=== PATIENT | male | born 1960 | race Caucasian/White ===

== ENCOUNTER → 2019-01-30 | Outpatient (CLI) | payer BC, OTHER ==
[2019-01-30 15:08] LABS: HEMATOCRIT 39.8 % (42.0-52.0); HEMOGLOBIN 13.7 gm/dL (14.0-18.0); MCH 33.4 pg (26.0-34.0); MCHC 34.3 g/dL (28.0-37.0); MCV 97.3 fL (80.0-100.0); RBC 4.09 mil/uL (4.50-6.00); WBC 4.5 thou/uL (4.0-11.0)
[2019-01-30 15:23] LABS: ALBUMIN 4.3 g/dL (3.4-5.0); CALCIUM 9.3 mg/dL (8.5-10.1); CREATININE 1.5 mg/dL (0.7-1.3); POTASSIUM 4.6 mmol/L (3.5-5.1); TOTAL BILIRUBIN 0.3 mg/dL (<0.1-1.0); TOTAL PROTEIN 6.9 g/dL (6.4-8.2)
== END ==
LOC: CAT 11:51
PROVIDERS: Internal Medicine Cardiovascular Disease
DX: I48.91 Unspecified atrial fibrillation (principal); I25.10 Atherosclerotic heart disease of native coronary artery without angina pectoris; J43.9 Emphysema, unspecified; M47.814 Spondylosis without myelopathy or radiculopathy, thoracic region; Z90.49 Acquired absence of other specified parts of digestive tract

== ENCOUNTER 2019-02-16 06:50 | Observation (INO) | payer BC, OTHER ==
[2019-02-16] VITALS (16 sets, daily range): BP systolic 101–133; BP diastolic 49–80
[~2019-02-16] VITALS: Ht 185.4 cm; Wt 134.2 kg
--- NOTE | ~2019-02-16 | D ---
[facility] [address] [place] [address] DISCHARGE SUMMARY Name: CIELO LIANG Room #: [facility] Bartolome Gruber#: [id number] Admission: 02/16/19 ������������������ Attend Phys: Russ Burton MD Discharge: 02/17/19 ������������������ Date of : 56 Report #: [id number] THIS REPORT FOR: //name// CC: FAM unknown Russ Burton TRISH RAMIREZ DATE OF SERVICE: 02/17/2019 DISCHARGE DIAGNOSES: 1. Paroxysmal atrial fibrillation. 2. Cardiomyopathy. 3. Hypertension. 4. Diabetes. PROCEDURES PERFORMED: AFib ablation. HISTORY: The patient is a 58-year-old male with a history of recurrent paroxysmal atrial fibrillation despite antiarrhythmic drug therapy, was here for an ablation. He underwent successful isolation of the 4 pulmonary veins. He had no procedure-related complications. HOSPITAL COURSE: The patient was monitored in the CCU overnight and did well with no issues. On the day of discharge, he denied any chest pain, shortness of breath, PND or orthopnea. PHYSICAL EXAMINATION: HEART: Regular rate and rhythm. LUNGS: Clear to auscultation bilaterally. ABDOMEN: Soft, nontender. EXTREMITIES: No clubbing, cyanosis, or edema. His right groin was healing nicely with no signs of hematoma. On telemetry, he remained in sinus rhythm throughout the night. As such, he was deemed stable for discharge home. He will continue with his same cardiac medications including his amiodarone and anticoagulation regimen. He will see my nurse practitioner in 2 weeks and see me back in 3 months. Discharge instructions were reviewed. ��������������������������������������������� ���������������������������������������� By: ��������������������������������������������� 0810 1046 Russ Burton MD /nt
--- NOTE | ~2019-02-16 | P ---
[facility] [address] [place] [address] PROCEDURE REPORT Name: CIELO LIANG Room #: 212-[facility] M..#: [id number] Admission: 02/16/19 ������������������ Attend Phys: Russ Burton MD Discharge: ������������������ Date of : 56 Report #: [id number] THIS REPORT FOR: //name// CC: FAM unknown Russ CUMMINGSDENICE MENGMAREK DATE OF SERVICE: 02/16/2019 PREOPERATIVE DIAGNOSIS: Paroxysmal atrial fibrillation. POSTOPERATIVE DIAGNOSIS: Paroxysmal atrial fibrillation. PROCEDURES PERFORMED: 1. Atrial fibrillation, CPT code 86768. 2. 3D mapping, CPT code 65262. 3. Intracardiac echocardiogram, CPT code 69626. ANESTHESIA: The patient underwent general anesthesia with no anesthesia related complications. DESCRIPTION OF PROCEDURE: The patient underwent informed consent. We discussed the details of the procedure including the risks, which include, but not limited to, bleeding, infection, vascular damage, cardiac perforation as well as stroke and [place]. He understood these risks and is willing to proceed. The patient was brought to the EP laboratory in a fasting and unsedated state, prepped and draped in a sterile fashion. Next, I injected lidocaine to the right groin region, obtained access to the right femoral vein x 3 placing an 8, 9 and 7-Icelandic short sheath using the modified Seldinger technique. Next, under fluoroscopy, I placed a decapolar catheter easily into the coronary sinus and ice catheter into the right atrium. Next, the patient was systemically heparinized and a transseptal was performed using an SL1 sheath and a Des Arc needle. Of note, the patient did have a significant interatrial septal hypertrophy with the finished area noted to be both anterior and along the superior aspect of the interatrial septum. Using the SL1 sheath and Des Arc needle, I was able to cross into the left atrium and placed a Lasso catheter and created a detailed 3D voltage map of the left atrium. At baseline, the patient was in sinus rhythm with sinus cycle length of 1060 milliseconds, [place] interval 240 milliseconds, QRS duration 90 milliseconds and QT interval 460 milliseconds. Of note, the patient did have an unusual anatomy of the left superior pulmonary vein. Isolation of this vein was quite challenging, likely due to 2 reasons, #1 being high transseptal and #2 being the unusual course of this left superior pulmonary vein that took a very anterior course around the left atrial appendage. Next, I exchanged my SL1 sheath for the cryosheath and cryoballoon and I performed approximately 5 freezes in the left superior pulmonary vein with [address] [id number] PROCEDURE REPORT Name: CIELO LIANG Room #: 212-[facility] M.R.#: [id number] Admission: 02/16/19 ������������������ Attend Phys: Russ Burton MD Discharge: ������������������ Date of : 56 Report #: [id number] no evidence of isolation. In fact, I had difficulty obtaining any significant occlusions and attempts were around -30 to -35 degrees. I therefore turned my attention to the left inferior pulmonary vein and performed a total of 4 freezes in this vein and again, this vein appeared to partially isolate, but it still appeared to be connected. I therefore re-interrogated the left superior pulmonary vein and this vein was still connected; therefore, I decided to turn attention to the right-sided veins, which were more straightforward. I used my decapolar catheter for phrenic nerve pacing. The right superior pulmonary vein underwent a 3 minute freeze followed by 240 second freeze, which resulted in isolation. The second freeze resulted in isolation in about 20 seconds. The right inferior pulmonary vein isolated with a single freeze within 60 seconds. The inferior vein underwent a single 4 minute freeze. I therefore removed the cryoballoon from the left atrium and created a voltage map, which showed that the right-sided veins were isolated, but there was still a lot of activity in the left superior pulmonary vein and some mild activity noted in the left inferior pulmonary vein; therefore, I performed a second transseptal using the SL1 sheath and placed a SmartTouch ThermoCool catheter into the left superior pulmonary vein. Again, even with radiofrequency ablation, this unusual tortuosity of this vessel made isolation of the vein challenging. Initially, the vein appeared to be connected along the roof of the vein and then the activation pattern changed. It then appeared that there was connection along the posterior ashly of this vein. Eventually, we were able to isolate this vessel. I then moved my Lasso into the right inferior pulmonary vein and there was one small electrogram that did capture with pacing and I ablated around this site until there was isolation. Again, these signals were basically along the carinal aspect of the left inferior pulmonary vein. This vein demonstrated entrance and exit block post ablation as well. As such, the procedure was concluded. Catheters and sheaths were pulled. Hemostasis was obtained after the patient received systemic protamine. There were no procedure related complications. CONCLUSIONS: Successful atrial fibrillation ablation with isolation of the 4 pulmonary veins requiring both radiofrequency and cryoablation. ��������������������������������������������� ���������������������������������������� By: ��������������������������������������������� 1704 0726 Russ Burton MD /nt
[2019-02-16 07:20] LABS: ABSOLUTE NEUTROPHILS 2.4 thou/uL (1.4-8.2); BASOPHILS 1.1 % (0.0-2.0); EOSINOPHILS 3.4 % (0.0-3.0); HEMATOCRIT 40.7 % (42.0-52.0); HEMOGLOBIN 13.9 gm/dL (14.0-18.0); LYMPHOCYTES 24.9 % (24.0-44.0); MCH 33.2 pg (26.0-34.0); MCHC 34.1 g/dL (28.0-37.0); MCV 97.5 fL (80.0-100.0); MONOCYTES 11.8 % (1.0-8.0); PLATELET COUNT 200 thou/uL (150-400); POLYS 58.8 % (36.0-66.0); RBC 4.17 mil/uL (4.50-6.00); RDW 12.7 % (10.5-14.5); WBC 4.1 thou/uL (4.0-11.0)
[2019-02-16] MEDS ORDERED: ALBUTEROL2.5 MG/31 INH (07:29)
[2019-02-16] MEDS ORDERED: XANAX 0.5 MG0.5 MG PO (07:29)
[2019-02-16] MEDS ORDERED: WELLBUTRIN XL150 MG PO (07:30)
[2019-02-16] MEDS ORDERED: PACERONE 200 M200 M1 PO (07:30)
[2019-02-16] MEDS ORDERED: CARDIZEM CD240 MG PO (07:32)
[2019-02-16] MEDS ORDERED: NEXIUM40 MG PO (07:32)
[2019-02-16] MEDS ORDERED: LASIX 20 MG TAB20 MG PO (07:33)
[2019-02-16 07:34] LABS: ALBUMIN 4.2 g/dL (3.4-5.0); APTT 30.3 Seconds (24.5-32.8); CALCIUM 9.5 mg/dL (8.5-10.1); CREATININE 1.4 mg/dL (0.7-1.3); POTASSIUM 4.3 mmol/L (3.5-5.1); PROTIME 10.6 Seconds (9.3-11.4); TOTAL BILIRUBIN 0.3 mg/dL (<0.1-1.0); TOTAL PROTEIN 7.1 g/dL (6.4-8.2)
[2019-02-16] MEDS ORDERED: IBUPROFEN 200200 M1 PO (07:34)
[2019-02-16] MEDS ORDERED: LOPRESSOR25 PO (07:34)
[2019-02-16] MEDS ORDERED: KLOR-CON 1010 MEQ PO (07:35)
[2019-02-16] MEDS ORDERED: XARELTO20 MG PO (07:35)
[2019-02-16] MEDS ORDERED: CRESTOR40 MG PO (07:36)
--- NOTE | 2019-02-16 17:52 | NUR ---
ASSESSMENT DOCUMENTED. PT ADMITED FROM [facility]. ADMISSION HX AND ASSESSMENT COMPLETED. RIGHT GROIN INCISION C/D/I. NO HEMATOMA NOTED. PRN PAIN MED GIVEN WITH PARTIAL RELIEF. ON BEDREST FOR 6 HOURS. NO CONCERN AT THIS WILL CONTINUE TO MONITOR.
[2019-02-17 00:25] VITALS: BP 106/61
[2019-02-17 05:08] VITALS: BP 122/61
--- NOTE | 2019-02-17 06:09 | NUR ---
ASSUME CARE 1900. PT/VITALS STABLE. INTERMITTENT RIGHT GROIN SORENESS. HYDROCODONE FOR RELIEF. UP AD JESSICA. ASSESSMENT CHARTED. PROGRESSING WELL WITH POC. PLAN IS POSSIBLE DISCHARGE TODAY OR TOMORROW. WILL CONTINUE TO MONITOR AND FOLLOW WITH POC
[2019-02-17 08:02] VITALS: BP 112/67
[2019-02-17 09:47] VITALS: BP 112/67
--- NOTE | 2019-02-17 10:15 | NUR ---
ASSESSMENT CHARTED. PT ALERT AND ORIENTED. VSS. HAD PRN PAIN MED FOR [place]. RIGHT GROIN INCISION. C/D/I. NO HEMATOMA NOTED. SEEN BY DR. ELLER. ORDERS GIVEN TO DISCHARGE PT TO HOME. DISCHARGE INSTRUCTIONS GIVEN TO PT. PT VERBERLIZE UNDERSTANDING.
== END 2019-02-17 10:31 | disposition home or self-care (01) ==
LOC: CATH 06:50 → 2N 14:06 → CATH 14:22 → ENTRNSPT 02-17 10:01 → EDTRNSPTSTS 02-17 10:28 → 2N 02-17 10:31
PROVIDERS: ADMIT Internal Medicine Cardiovascular Disease
DX: I48.0 Paroxysmal atrial fibrillation (principal); I42.9 Cardiomyopathy, unspecified; I10 Essential (primary) hypertension; E11.9 Type 2 diabetes mellitus without complications
CPT/HCPCS: 62110; 62900; 65020; 65040; 70005